=== PATIENT | female | born 1975 | race Caucasian/White ===

== ENCOUNTER → 2021-10-31 | Day surgery (SDC) | payer OTHER ==
[~2021-10-31] VITALS: Ht 167.6 cm; Wt 85.3 kg
[~2021-10-31] MED LIST: ADVIL200 M1 PO; CLEOCIN300 MG PO; EFFEXOR XR 3737.5 MG PO; LODINE400 MG PO; NORCO 5-325 TA1 EACH PO; PERCOCET 5-3251 EACH PO; SUBOXONE 8 MG-1 EACH PO; VITAMIN B12-FO1 EACH PO; ZOFRAN4 MG PO
[2021-10-31 09:57] LABS: HCG (URINE) SCREEN NEGATIVE (NEGATIVE)
== END | disposition home or self-care (01) ==
LOC: FAS 09:42
PROVIDERS: Anesthesiology
DX: R22.1 Localized swelling, mass and lump, neck (principal); F17.200 Nicotine dependence, unspecified, uncomplicated
CPT/HCPCS: 84703; J1100; J1885; J2001; J2250; J2405; J2704; J7120